=== PATIENT | female | born 1935 | race Caucasian/White ===

== ENCOUNTER 2018-07-14 08:30 | Emergency (ER) | payer OTHER ==
[~2018-07-14] VITALS: Ht 157.5 cm; Wt 58.5 kg
--- NOTE | ~2018-07-14 | EKG ---
[place] [address] [facility] [place] [address] ELECTROCARDIOGRAM REPORT Name: LANEY NAVARRETE Room #: DEP JARROD Cruz#: [id number] Admission: 07/14/18 Attend Phys: Discharge: 07/14/18 Date of : 37 Report #: [id number] THIS REPORT FOR: //name// [facility] ED Test Date: 2018-07-14 Test Time: 08:42:59 Pat Name: LANEY NAVARRETE Department: Room: Gender: F Head Control Clerk: [facility] : 1935 Requested By: Amna Rodarte Order Number: [id number] MD: Jung Seaman Measurements Intervals [place] Rate: 76 P: 94 LA: 168 QRS: 84 QRSD: 87 T: 87 QT: 358 QTc: 403 Interpretive Statements Sinus rhythm Nonspecific T abnormalities, lateral leads No previous ECG available for comparison Electronically Signed On 07-14-2018 16:42:00 CDT by Jung Seaman [email or web address] <ELECTRONICALLY SIGNED> By: Jung Seaman MD, [facility] 07/14/18 [id number] Jung Seaman MD, FACC /EPI
[2018-07-14 09:06] LABS: HEMATOCRIT 43.6 % (37.0-47.0); HEMOGLOBIN 14.7 gm/dL (12.0-15.0); MCH 32.9 pg (26.0-34.0); MCHC 33.7 g/dL (28.0-37.0); MCV 97.4 fL (80.0-100.0); RBC 4.48 mil/uL (4.20-5.00); RDW 12.8 % (10.5-14.5); WBC 10.2 thou/uL (4.0-11.0)
[2018-07-14 09:11] LABS: CALCIUM 9.2 mg/dL (8.5-10.1); POTASSIUM 4.5 mmol/L (3.5-5.1)
[2018-07-14 09:17] LABS: ALBUMIN 3.8 g/dL (3.4-5.0); TOTAL BILIRUBIN 0.3 mg/dL (<0.1-1.0); TOTAL PROTEIN 8.1 g/dL (6.4-8.2)
[2018-07-14] MEDS ORDERED: SIMVASTATIN80 MG PO (09:41)
[2018-07-14] MEDS ORDERED: FISH OIL 1,001000 M2 PO (09:42)
[2018-07-14] MEDS ORDERED: ASPIR 8181 MG PO (09:42)
[2018-07-14] MEDS ORDERED: CELEXA10 MG PO (09:42)
[2018-07-14] MEDS ORDERED: FOSAMAX 70 MG T70 MG PO (09:43)
[2018-07-14] MEDS ORDERED: CALCIUM 500 +1 EAC5 PO (09:43)
[2018-07-14] MEDS ORDERED: IBUPROFEN 200200 M1 PO (09:43)
[2018-07-14] MEDS ORDERED: TRIAMCINOLONE A15 G3 TOP (09:44)
[2018-07-14 10:26] LABS: URINE BILIRUBIN NEGATIVE (Negative); URINE BLOOD NEGATIVE (Negative); URINE CLARITY CLEAR; URINE COLOR YELLOW; URINE GLUCOSE-RANDOM* NEGATIVE (Negative); URINE KETONES NEGATIVE (Negative); URINE LEUKOCYTES-REFLEX NEGATIVE (Negative); URINE NITRITE-REFLEX NEGATIVE (Negative); URINE PROTEIN (DIPSTICK) NEGATIVE (Negative); URINE SPECIFIC GRAVITY <= 1.005 (1.005-1.035); URINE UROBILINOGEN 0.2 E.U./dl (0.2-1.0)
[2018-07-14 11:20] VITALS: BP 122/67
== END 2018-07-14 11:20 | disposition home or self-care (01) ==
LOC: ER 08:30
PROVIDERS: Student in an Organized Health Care Education/Training Program
DX: R42 Dizziness and giddiness (principal); T45.8X5A Adverse effect of other primarily systemic and hematological agents, initial encounter; Y92.89 Other specified places as the place of occurrence of the external cause; E78.5 Hyperlipidemia, unspecified; F32.9 Major depressive disorder, single episode, unspecified; F17.210 Nicotine dependence, cigarettes, uncomplicated; Z88.1 Allergy status to other antibiotic agents